=== PATIENT | male | born 1955 ===

== ENCOUNTER 2018-02-24 08:19 | Outpatient (CLI) | payer OTHER ==
[~2018-02-24] VITALS: Ht 180.3 cm; Wt 108.9 kg
== END 2018-02-24 08:35 | disposition home or self-care (01) ==
LOC: OFIC 805 08:19
DX: J34.89 Other specified disorders of nose and nasal sinuses (principal); R09.81 Nasal congestion; J01.80 Other acute sinusitis; G50.1 Atypical facial pain

== ENCOUNTER 2018-03-29 08:53 | Outpatient (CLI) | payer OTHER ==
[~2018-03-29] VITALS: Ht 152.4 cm; Wt 108.9 kg
== END 2018-03-29 17:19 | disposition home or self-care (01) ==
LOC: OFIC 805 08:53
DX: J34.89 Other specified disorders of nose and nasal sinuses (principal); R09.81 Nasal congestion; R51 Headache; J32.8 Other chronic sinusitis

== ENCOUNTER 2018-04-18 09:09 | Outpatient (CLI) | payer OTHER ==
[~2018-04-18] VITALS: Ht 152.4 cm; Wt 108.9 kg
== END 2018-04-18 09:20 | disposition home or self-care (01) ==
LOC: OFIC 805 09:09
DX: R51 Headache (principal); M26.69 Other specified disorders of temporomandibular joint

== ENCOUNTER 2019-04-03 11:12 | Outpatient (CLI) | payer OTHER | END 2019-04-03 11:30 | disposition home or self-care (01) | LOC: OFIC 805 11:12 | DX: M62.838 Other muscle spasm (principal); M26.69 Other specified disorders of temporomandibular joint; R09.81 Nasal congestion; H66.93 Otitis media, unspecified, bilateral; R49.0 Dysphonia ==

== ENCOUNTER 2019-04-18 11:54 | Outpatient (CLI) | payer OTHER ==
[~2019-04-18] VITALS: Ht 152.4 cm; Wt 108.9 kg
== END 2019-04-18 14:25 | disposition home or self-care (01) ==
LOC: OFIC 805 11:54
DX: H66.93 Otitis media, unspecified, bilateral (principal); J32.8 Other chronic sinusitis; G50.1 Atypical facial pain; R09.81 Nasal congestion; R49.0 Dysphonia; M62.838 Other muscle spasm

== ENCOUNTER 2019-06-01 07:51 | Outpatient (CLI) | payer OTHER | END 2019-06-01 07:55 | disposition home or self-care (01) | LOC: SONOGRAMA 07:51 | DX: E04.2 Nontoxic multinodular goiter (principal) ==